=== PATIENT | male | born 1995 | race Caucasian/White ===

== ENCOUNTER 2018-08-18 14:41 | Emergency (ER) | payer OTHER ==
[2018-08-18 15:53] VITALS: BP 122/67
--- NOTE | 2018-08-18 16:20 | UC ---
Throat Pain/Nasal Mark HPI - HPI Summary HPI Summary: This patient states that he had flu symptoms approximately 3 weeks ago. Since then over the past week he has had fever occasional chills, productive cough and mild sore throat which he states feels more like a full feeling in his throat. He is a nonsmoker. - History of Current Complaint Chief Complaint: UCGeneralIllness Stated Complaint: LOSS OF VOICE,COUGH,ACHY Time Seen by Provider: 08/18/18 16:02 Hx Obtained From: Patient Onset/Duration: Gradual Onset Severity: Mild Pain Intensity: 7 Cough: Productive Associated Signs & Symptoms: Positive: Hoarseness, Fever. Negative: Drooling - Epiglottits Risk Factors Epiglottis Risk Factors: Negative - Allergies/Home Medications Allergies/Adverse Reactions: Allergies Allergy/AdvReac Type Severity Reaction Status Date / Time oseltamivir [From Tamiflu] AdvReac Vomiting Verified 08/18/18 15:43 Home Medications: Home Medications Anti-Nausea 1 tab PO ONCE PRN 08/18/18 [History] PMH/Surg Hx/FS Hx/Imm Hx Previously Healthy: Yes - Surgical History Surgical History: None - Family History Known Family History: Positive: Non-Contributory - Social History Occupation: Student Alcohol Use: Occasionally Substance Use Type: Marijuana Smoking Status (MU): Never Smoked Tobacco Review of Systems All Other Systems Reviewed And Are Negative: Yes Constitutional: Positive: Fever, Chills - Fever and chills over the past week. Skin: Positive: Negative Eyes: Positive: Negative ENT: Positive: Sore Throat, Other - Patient states that he feels like his throat is full, he's also been hoarse over the past 3 weeks since he had flu symptoms. Respiratory: Positive: Cough - Dry cough occasionally productive. Cardiovascular: Positive: Negative Gastrointestinal: Positive: Negative, Vomiting Genitourinary: Positive: Negative - Patient states occasionally he coughs so much she vomits. Motor: Positive: Negative Neurovascular: Positive: Negative Musculoskeletal: Positive: Negative Neurological: Positive: Negative Psychological: Positive: Negative Is Patient Immunocompromised?: No Physical Exam Triage Information Reviewed: Yes Appearance: Well-Appearing, No Pain Distress, Well-Nourished Vital Signs: Initial Vital Signs Temp 98.6 F 08/18/18 15:44 Pulse 107 08/18/18 15:44 Resp 20 03/11/19 15:44 BP 122/67 08/18/18 15:44 Pulse Ox 98 08/18/18 15:44 Vital Signs Reviewed: Yes Eye Exam: Normal ENT: Positive: Pharyngeal erythema, Tonsillar swelling - Mild tonsillar enlargement, uvula is midline, no trismus., Hoarse voice. Negative: Tonsillar exudate, Trismus, Muffled voice, Uvula midline Neck exam: Normal Neck: Positive: Supple, Nontender, No Lymphadenopathy Respiratory Exam: Normal Cardiovascular Exam: Normal Abdominal Exam: Normal Bowel Sounds: Positive: Present Musculoskeletal Exam: Normal Neurological Exam: Normal Psychological Exam: Normal Skin Exam: Normal Throat Pain/Nasal Course/Dx - Course Course Of Treatment: CXR: IMPRESSION: NO EVIDENCE FOR ACTIVE CARDIOPULMONARY DISEASE. Soft Tissue neck: FINDINGS: The epiglottis is not fully defined although does not appear grossly enlarged. The aryepiglottic folds appear to be within normal limits. No retropharyngeal soft tissue. swelling is noted. IMPRESSION: NO EVIDENCE FOR ACUTE FINDING. - Differential Dx/Diagnosis Provider Diagnosis: Strep pharyngitis Discharge - Sign-Out/Discharge Documenting (check all that apply): Patient Departure All imaging exams completed and their final reports reviewed: Yes - Discharge Plan Condition: Fair Disposition: HOME Prescriptions: Amoxicillin PO (*) [Amoxicillin 875 MG (*)] 875 mg PO BID 10 Days #20 tab Patient Education Materials: Strep Throat (DC) Forms: *School Release Referrals: No Primary Care Phys,NOPCP [Primary Care Provider] - [facility] [[employer], APPLICATION, OTHER] - Additional Instructions: Increase fluids, take your antibiotic twice a day for the full 10 days. May take Motrin every 6 hours for pain, warm saltwater gargles, throat lozenges. Definite follow-up with an ear nose and throat physician if you have continued hoarseness past the antibiotic prescription. Dr. Machado is an ear nose and throat physician in [place]. - Billing Disposition and Condition Condition: FAIR Disposition: Home - Attestation Statements Provider Attestation: Per institutional requirements, I have reviewed the chart, however, I was not consulted specifically or made aware of this patient by the midlevel provider. I did not personally evaluate, interact with , or disposition this patient.
== END 2018-08-18 17:29 | disposition home or self-care (01) ==
LOC: UCCORT 14:41
DX: J02.0 Streptococcal pharyngitis (principal); Z88.1 Allergy status to other antibiotic agents
CPT/HCPCS: 70360; 71046; 87651; 99212; G0463